=== PATIENT | female | born 1975 | race Caucasian/White ===

== ENCOUNTER → 2016-07-11 | Day surgery (SDC) | payer BC ==
[~2016-07-11] MED LIST: BUPIVACAINE/EPINEPHRINE 0.25% PF 30 ML VIAL ONE; LACTATED RINGER'S 1000 ML INJ 1,000 ML ONE; LIDOCAINE 1%/EPINEPHrine 1:100,000 SOLN 30 ML VIAL ONE; ONDANSETRON HCL 4 MG/2 ML VIAL IV PUSH ONE; PROPOFOL 500 MG/50 ML BTL IV ONE; ceFAZolin 2 GM PREMIX 50 ML ONE
--- NOTE | 2016-07-11 10:40 | TN ---
cc: ZOË STEVENS DATE OF SURGERY 07/11/2016 PREOPERATIVE DIAGNOSIS Right hip soft tissue subcutaneous mass. POSTOPERATIVE DIAGNOSIS Right hip soft tissue subcutaneous mass. PROCEDURE 1. Excisional biopsy of right hip soft tissue mass. 2. Excisional biopsy of the right inguinal skin pigmented lesion. ATTENDING SURGEON Zoë Stevens MD SECURITY OPERATIONS SPECIALIST None ANESTHESIA TIVA with local anesthetic FINDINGS An approximately a 1.5 cm nodular, rubbery subcutaneous mass grossly excised from the right hip. A grossly complete excision of pigmented lesion of the right inguinal skin. INDICATIONS FOR PROCEDURE Patient is a 41-year-old female who was found to have a soft tissue swelling by her energy conservation technician, Dr. Kaitlin Garcia. MRI was ordered for evaluation and was concerning for potential neoplasm. Discussion with the patient about further workup, I recommended excisional biopsy as this was likely representing scarring from her previous skin biopsies or potentially some necrotic fat from previous a trauma from her job. Also, due to the patient's pigmented lesion on the right inguinal skin, I recommended excisional biopsy to rule out malignancy. The risks, benefits, and alternatives to the above procedures were explained to the patient and her prior to the procedure and they agreed to undergo the procedure. PROCEDURE After informed was obtained, the patient was taken to the operating room, placed in a supine position and placed under TIVA sedation. The right hip and groin were prepped and draped in a sterile fashion. Time-out was performed. We used a mixture of lidocaine 1% and 0.25% Marcaine with epinephrine to anesthetize both areas of the planned biopsies. We started with the soft tissue biopsy. We made an excision of previous skin biopsy site 3 cm x 1 cm and carried this down to the subcutaneous tissue. In this essentially skin excision, we also occluded the subcutaneous but deep against the fascia 1-1.5 cm roughly nodular rubbery type mass in the excision specimen. This was all done with the Bovie electrocautery without difficulty. This was completely grossly removed, although there was not margins taken. We sent this for of permanent processing. We had excellent hemostasis with the Bovie electrocautery. We turned our attention to closure and this was closed with 2-0 deep dermal Vicryl sutures followed by 4-0 Monocryl and Dermabond with minimal tension. We then turned our attention to the skin biopsy and performed a 1.5 cm x 0.6 cm elliptical skin biopsy with a 15 blade scalpel of the patient's right groin pigmented lesion. This was sent for permanent processing un-oriented. We had excellent hemostasis with the Bovie electrocautery. We closed the skin with a running 4-0 Monocryl suture and Dermabond over the skin. At this point in time, the patient was discontinued from her anesthesia and taken to the PACU in stable condition. The patient tolerated the procedure well. No apparent complications. All counts were correct and I was present and scrubbed throughout the entire procedure. MD KARUNA Gracia/ROQUE /10:09 AM /10:22 AM
== END | disposition home or self-care (01) ==
LOC: ESDC 07:51
PROVIDERS: ATTEND Surgery
DX: R22.2 Localized swelling, mass and lump, trunk (principal); L98.9 Disorder of the skin and subcutaneous tissue, unspecified
CPT/HCPCS: 00400; 11602; 27047; 88305; J0690; J2405; J3010; J7120; 88307